=== PATIENT | male | born 1960 | race Hispanic/Latino ===

== ENCOUNTER 2016-11-29 05:05 | Emergency (ER) | payer OTHER ==
[2016-11-29] MEDS ORDERED: ZOFRAN IV ONE (05:24)
[2016-11-29] MEDS ORDERED: TORADOL IV ONE (05:24)
[2016-11-29 06:09] LABS: Bilirubin,Urine NEG (Negative); Blood,Urine MOD (Negative); Ketones,Urine NEG (Negative); Leukocyte Esterase,Urine NEG (Negative); Mucus,Urine FEW /HPF; Nitrite,Urine NEG (Negative); Protein,Urine <15 mg/dL mg/dL (Negative); Urobilinogen,Urine < 2.0 mg/dL (<2.0); WBC,Urine < 1.0 /HPF (0.0-6.0)
--- NOTE | 2016-11-29 06:31 | Cat Scan Report ---
FINAL REPORT PROCEDURE: CT ABDOMEN PELVIS WO CON TECHNIQUE: Computerized axial tomography of the abdomen and pelvis was performed without intravenous contrast. This study is performed without intravascular contrast material and its sensitivity for abdominal and pelvic pathology, including neoplasms, inflammation, abscess, free fluid, thrombosis, arterial dissection and infarction, is reduced compared with a contrast enhanced study. Oral contrast was also not given. HISTORY: Flank pain. Abdominal pain COMPARISON: No prior studies are available for comparison. FINDINGS: Visualized lower thorax: There is mild atelectasis in the posterior lung bases bilaterally. Liver: In the anterior lower right liver there is a small 1.3 centimeter fluid density cyst. Liver appears unremarkable otherwise for noncontrast scan.. Spleen: Normal size and attenuation. Gallbladder and biliary system: Normal. Pancreas: Normal. Adrenals: There are 2 small fatty nodules in the right adrenal gland. The largest measures about 1.0 centimeter. The 2nd measures about 0.7 centimeters. Given the fatty density of each of these lesions, these could be incidental myelolipomas of the right adrenal gland. The left adrenal gland appears unremarkable.. Kidneys: There is minimal fullness of left renal collecting system and left ureter down to a small 3 millimeter partially obstructing stone in the distal left ureter about 3 or 4 centimeters proximal to the bladder base. There is a small 1.4 centimeter fluid density cyst in the right kidney. Kidneys appear unremarkable otherwise for noncontrast study. GI tract: The bowel appears unremarkable when considering lack of oral contrast. However I cannot identify the appendix with certainty.. Lymph nodes and mesentery: Normal. Vasculature: Normal. Bladder: Normal. Reproductive organs: Normal. Peritoneum: No free fluid. Musculoskeletal structures: No significant abnormality. Other: None. IMPRESSION: 1. There is a small 3 millimeter partially obstructing stone in the distal left ureter about 3 or 4 millimeters proximal to the bladder base. There is minimal associated dilation of left ureter and left renal collecting system and minimal reactive stranding around the left kidney. 2. Probable small 1.4 centimeter right renal cyst and small 1.3 centimeter cyst in the right liver 3. There are 2 small fatty nodules in the right adrenal gland. The largest measures 1.0 centimeter. These are nonspecific but given the fatty nature, these could be incidental adrenal myelolipomas.
--- NOTE | 2016-11-29 08:33 | Emergency Department Report ---
Chief Complaint: Abdominal Pain Stated Complaint: URINARY RETENTION - HPI History of Present Illness: Patient presents with acute onset L flank pain. Reports vomit. States he has a flight to catch to [place] in a few hours. - Exam Vital Signs: Vital Signs 11/29/16 05:11 Temperature 98.2 F Pulse Rate 65 Respiratory 20 Rate Blood Pressure 144/91 O2 Sat by Pulse 99 Oximetry Physical Exam: General: NAD. Abdomen: Obese. Left CVA tenderness. + BS. MSE screening note: Focused history and physical exam performed. Due to findings the following was ordered: CBC, BMP ordered to rule-pot/rule-in anemia, leukocytosis; and assess renal function. UA and CT abdomen/pelvis ordered by triage nurse. ED Medical Decision Making - Medical Decision Making Patient to be seen by main ED provider. ED Disposition for MSE Condition: Stable Referrals: PRIMARY CAREMD [Primary Care Provider] - 3-5 Days
[2016-11-29 08:45] VITALS: BP 121/87
--- NOTE | 2016-11-29 08:45 | Emergency Department Report ---
HPI - General Chief Complaint: Abdominal Pain Time Seen by Provider: 11/29/16 08:27 - HPI HPI: This is a 56-year-old male who presents to the emergency department with complaint of left back pain that radiates to the left flank and abdomen that began about 1 AM this morning. Patient had an episode of vomiting but says the vomiting was due to the level of pain and not because he was having significant nausea. He denies any fever, numbness or paresthesias or problems with bowel movements. He is able to urinate but says that it is not as much as he usually does. The patient is from [facility] and is due to return there on a flight at noon today. He has a primary care doctor there as well. He has a past medical history of hypertension. He has not taken anything for symptoms prior to presentation. ED Past Medical Hx - Past Medical History Previous Medical History?: Yes Hx Hypertension: Yes Additional medical history: CHOLESTEROL - Surgical History Past Surgical History?: Yes Hx Appendectomy: Yes - Medications Home Medications: Home Medications Medication Instructions Recorded Confirmed Last Taken Type HYDROcodone/APAP 5-325 [[place] 1 each PO Q6HR PRN #10 tablet 11/29/16 Unknown Rx 5/325] Ibuprofen [Motrin] 800 mg PO Q8HR PRN #20 tablet 11/29/16 Unknown Rx Tamsulosin [Flomax] 0.4 mg PO QDAY #5 cap 11/29/16 Unknown Rx ED Review of Systems ROS: Stated complaint: URINARY RETENTION Other details as noted in HPI Comment: All other systems reviewed and negative Constitutional: denies: chills, fever Eyes: denies: eye pain, eye discharge, vision change Respiratory: denies: cough, shortness of breath, wheezing Cardiovascular: denies: chest pain, palpitations Gastrointestinal: abdominal pain, vomiting Genitourinary: dysuria. denies: discharge Musculoskeletal: back pain. denies: arthralgia Skin: denies: rash, lesions Neurological: denies: headache, weakness, paresthesias Physical Exam - Physical Exam Vital Signs: Vital Signs 11/29/16 05:11 Temperature 98.2 F Pulse Rate 65 Respiratory 20 Rate Blood Pressure 144/91 O2 Sat by Pulse 99 Oximetry Physical Exam: GENERAL: The patient is well-developed well-nourished. HEENT: Normocephalic. Atraumatic. Extraocular motions are intact. Patient has moist mucous membranes. Pupils equal reactive to light bilaterally. NECK: Supple. Trachea is midline. CHEST/LUNGS: Clear to auscultation. There is no respiratory distress noted. HEART/CARDIOVASCULAR: Regular. There is no tachycardia. There is no gallop rub or murmur. ABDOMEN: Abdomen is soft, nontender. Patient has normal bowel sounds. There is no abdominal distention. SKIN: There is no rash. There is no edema. There is no diaphoresis. NEURO: The patient is awake, alert, and oriented. The patient is cooperative. The patient has no focal neurologic deficits. The patient has normal speech. MUSCULOSKELETAL: There is no tenderness or deformity. There is no limitation range of motion. There is no evidence of acute injury. BACK: No midline thoracic or lumbar tenderness to palpation or deformity. No CVA tenderness to palpation. ED Course Vital Signs 11/29/16 05:11 Temperature 98.2 F Pulse Rate 65 Respiratory 20 Rate Blood Pressure 144/91 O2 Sat by Pulse 99 Oximetry ED Medical Decision Making - Lab Data Result diagrams: 11/29/16 08:27 11/29/16 08:27 - Radiology Data Radiology results: report reviewed CT of the abdomen and pelvis without contrast show shows a 3 mm partially obstructing stone in the distal left ureter about 3 or 4 mm proximal to the bladder base. There is minimal associated dilation of the left ureter and left renal collecting system and minimal reactive stranding around left kidney. Probable small 1.4 cm right renal cyst and small 1.3 similar cyst in the right liver. There are 2 small fatty nodules in the right adrenal gland. - Medical Decision Making 56-year-old male presents to the emergency department with left back, flank, abdominal pain since [address] shows a 3 mm left ureter stone that is not fully obstructing and not causing any hydronephrosis. Patient had one episode of vomiting but he thinks is due to the pain and that has resolved with the dose of Toradol and Zofran and he received earlier. Patient is from [facility] and has a primary care doctor there and a plane to catch at noon today. Patient 's vital signs stable throughout his ED course. Urinalysis does not show any urinary tract infection. Medical panel does not show any renal insufficiency or failure. Patient will be discharged home with NSAIDs, pain medication, Flomax and a strainer. He has been instructed to follow-up with his primary care doctor soon as soon as he returns to [place]. - Differential Diagnosis nephrolithiasis, pyelonephritis, UTI, muscle strain Critical Care Time: No Critical care attestation.: If time is entered above; I have spent that time in minutes in the direct care of this critically ill patient, excluding procedure time. ED Disposition Clinical Impression: Nephrolithiasis, Ureterolithiasis, Flank pain Disposition: DISCHARGED TO HOME OR SELFCARE Is pt being admited?: No Does the pt Need Aspirin: No Condition: Good Instructions: Kidney Stones (ED), How to Strain Your Urine (ED) Additional Instructions: Please follow-up with your primary care doctor in the next few days. Return to the emergency department with any worsening of her symptoms or any acute distress. You've been prescribed a medication that is sedating. Therefore this medication cannot be mixed with alcohol, or taken prior to driving, working, or being responsible for children. Prescriptions: HYDROcodone/APAP 5-325 [[place] 5/325] 1 each PO Q6HR PRN #10 tablet PRN Reason: Pain Ibuprofen [Motrin] 800 mg PO Q8HR PRN #20 tablet PRN Reason: Pain Tamsulosin [Flomax] 0.4 mg PO QDAY #5 cap Referrals: PRIMARY CARE, [Primary Care Provider] - 3-5 Days Time of Disposition: 08:59
[2016-11-29 08:52] LABS: Basophils % (Auto) 0.4 % (0.0-1.8); Eosinophils % (Auto) 0.4 % (0.0-4.3); Hematocrit 43.5 % (35.5-45.6); Hemoglobin 14.8 gm/dl (11.8-15.2); Mean Corpuscular HGB Conc 34 % (32-34); Mean Corpuscular Hemoglobin 31 pg (28-32); Mean Corpuscular Volume 92 fl (84-94); Platelet Count 213 K/mm3 (140-440); Red Blood Count 4.74 M/mm3 (3.65-5.03); Red Cell Distribution Width 12.5 % (13.2-15.2); White Blood Count 10.2 K/mm3 (4.5-11.0)
[2016-11-29 08:55] LABS: Anion Gap 20 mmol/L; BUN/Creatinine Ratio 15.45; Blood Urea Nitrogen 17 mg/dL (9-20); Calcium 8.8 mg/dL (8.4-10.2); Carbon Dioxide 23 mmol/L (22-30); Chloride 102.7 mmol/L (98-107); Glucose 128 mg/dL (75-100); Potassium 4.9 mmol/L (3.6-5.0); Sodium 141 mmol/L (137-145)
== END 2016-11-29 09:06 | disposition home or self-care (01) ==
LOC: ED 05:05
DX: N20.0 Calculus of kidney (principal); N20.1 Calculus of ureter; R10.30 Lower abdominal pain, unspecified; I10 Essential (primary) hypertension; Z90.49 Acquired absence of other specified parts of digestive tract
CPT/HCPCS: 36415; 74176; 80048; 81001; 85025; 96374; 96375; 99284; J1885; J2405